=== PATIENT | female | born 1990 | race Caucasian/White ===

== ENCOUNTER 2021-12-25 21:07 | Emergency (ER) | payer MEDICAID ==
[~2021-12-25] VITALS: Ht 160 cm; Wt 68.0 kg
[2021-12-25 21:15] VITALS: BP 104/61
--- NOTE | 2021-12-25 21:18 | NUR ---
TO LOBBY A/W BED AMBULATORY
--- NOTE | 2021-12-25 22:26 | NUR ---
PT AMBULATED TO BED #3
--- NOTE | 2021-12-25 22:27 | NUR ---
Wesly rivero in [facility] - 12/25/21 at 2227 by JOCELYN PT TAKEN TO BED 3
--- NOTE | 2021-12-25 22:41 | NUR ---
31 Y/O FEMALE BIBS FROM HOME, C/O N/V/D AND APIN X2 DAYS. DENIES BLOOD IN VOMIT OR DIARRHEA. DENIES COUGH, FEVER, CP, OR SOB. SKIN IS PINK/WARM/DRY. A/OX4, UNLABORED BREATHING, AMBULATORY W/O ASSISTANCE. DENIES HX/RX NKA
--- NOTE | 2021-12-25 23:19 | NUR ---
DR ONTIVEROS AT BEDSIDE EXAMINING PT
[2021-12-25] MEDS ORDERED: MORPHINE SULFATE 4 MG/ML SYR IM ONE (23:20)
[2021-12-25] MEDS ORDERED: NACL 0.9% 1,000 ML IV ONE (23:20)
[2021-12-25] MEDS ORDERED: ONDANSETRON 4 MG/2 ML VIAL IVP ONE (23:20)
[2021-12-25 23:22] LABS: APPEARANCE,URINE CLEAR (CLEAR); BILIRUBIN,URINE NEGATIVE (NEGATIVE); BLOOD, URINE NEGATIVE (NEGATIVE); COLOR,URINE YELLOW (YELLOW); LEUKOCYTE ESTERASE ,URINE 1+ (NEGATIVE); NITRITE, URINE NEGATIVE (NEGATIVE); PH,URINE 6.5 (5.0-9.0); UGLUCOSE NEGATIVE (NEGATIVE)
[2021-12-25 23:34] LABS: RBC,URINE 0-5 /HPF (0-5); WBC,URINE 0-5 /HPF (0-5); YEAST,URINE Rare /HPF (None Seen)
--- NOTE | 2021-12-25 23:44 | NUR ---
[facility]AVEL REGISTERED NURSE PACU AT BEDSIDE OBTAINING SAMPLE
[2021-12-25 23:47] LABS: BASOPHILS # (AUTO) 0.1 K/uL (0.00-0.22); BASOPHILS % (AUTO) 0.8 % (0.0-2.0); EOSINOPHILS # (AUTO) 0.3 K/uL (0-0.4); EOSINOPHILS % (AUTO) 3.2 % (0.0-4.0); HEMATOCRIT 40.8 % (36-48); HEMOGLOBIN 13.7 g/dL (12.0-16.0); MEAN CORPUSCULAR HEMOGLOBIN 32 pg (27-31); MEAN CORPUSCULAR HGB CONC 34 g/dL (33-37); MEAN CORPUSCULAR VOLUME 94.3 fL (80-94); MONOCYTES # (AUTO) 0.6 K/uL (0.8-1.0); MONOCYTES % (AUTO) 7.4 % (1.7-9.3); NEUTROPHILS # (AUTO) 4.1 K/uL (1.8-7.7); NEUTROPHILS % (AUTO) 50.6 % (42.2-75.2); PLATELET COUNT (AUTO) 276 K/uL (140-450); RED BLOOD CELL COUNT(AUTO) 4.32 MIL/uL (4.20-5.40); RED CELL DISTRIBUTION WIDTH 12.4 % (11.6-13.7)
[2021-12-26 00:05] LABS: ANION GAP 11.5 (8-16); CARBON DIOXIDE 27.9 mmol/L (21-32); CREATININE 0.6 mg/dL (0.6-1.3); POTASSIUM 4.4 mmol/L (3.5-5.1); TOTAL BILIRUBIN 0.3 mg/dL (0.0-1.0)
--- NOTE | 2021-12-26 02:20 | NUR ---
Patient discharged with v/s stable. Written and verbal after care instructions given and explained. Patient verbalized understanding. Ambulatory with steady gait. All questions addressed prior to discharge. Advised to follow up with PMD. VSS, A/OX4, UNLABORED BREATHING, AMBULATORY, AND CALM DEMEANOR. PT DISCHARGED BY DR ONTIVEROS.
[2021-12-26 02:33] VITALS: BP 113/60
== END 2021-12-26 02:20 | disposition home or self-care (01) ==
LOC: MED 21:07
DX: A08.39 Other viral enteritis (principal)
CPT/HCPCS: 36415; 80053; 81001; 81025; 83690; 85025; 87086; 96361; 96372; 96374; 99284; J2270; J2405; J7030

== ENCOUNTER 2022-02-08 16:28 | Emergency (ER) | payer MEDICAID ==
[~2022-02-08] VITALS: Ht 160 cm; Wt 63.5 kg
[2022-02-08 16:48] VITALS: BP 124/76
--- NOTE | 2022-02-08 17:23 | NUR ---
Patient A/Ox4, chest rise and fall symmetrical, no s/s of distress. Patinet resting in bed 9.
[2022-02-08] MEDS ORDERED: NACL 0.9% 1,000 ML IV SCH (17:40)
[2022-02-08] MEDS ORDERED: ONDANSETRON 4 MG/2 ML VIAL IVP ONE (17:40)
--- NOTE | 2022-02-08 18:00 | NUR ---
Patient lying in bed a/ox4, no s/s of discomfort, chest rise and fall symmetrical.
[2022-02-08 18:11] LABS: BASOPHILS % (AUTO) 0.2 % (0.0-2.0); EOSINOPHILS # (AUTO) 0.2 K/uL (0-0.4); EOSINOPHILS % (AUTO) 1.5 % (0.0-4.0); HEMOGLOBIN 12.7 g/dL (12.0-16.0); LYMPHOCYTES # (AUTO) 0.5 K/uL (2.5-16.5); LYMPHOCYTES % (AUTO) 4.6 % (20.5-51.1); MEAN CORPUSCULAR HEMOGLOBIN 31 pg (27-31); MEAN CORPUSCULAR HGB CONC 34 g/dL (33-37); MEAN CORPUSCULAR VOLUME 93.7 fL (80-94); MONOCYTES # (AUTO) 0.6 K/uL (0.8-1.0); MONOCYTES % (AUTO) 5.6 % (1.7-9.3); NEUTROPHILS # (AUTO) 10.1 K/uL (1.8-7.7); NEUTROPHILS % (AUTO) 88.1 % (42.2-75.2); PLATELET COUNT (AUTO) 195 K/uL (140-450); RED BLOOD CELL COUNT(AUTO) 4.05 MIL/uL (4.20-5.40); RED CELL DISTRIBUTION WIDTH 12.5 % (11.6-13.7); WHITE BLOOD COUNT (AUTO) 11.4 K/uL (4.8-10.8)
[2022-02-08 18:30] LABS: ALBUMIN 3.5 g/dL (3.4-5.0); CARBON DIOXIDE 24.5 mmol/L (21-32); CREATININE 0.5 mg/dL (0.6-1.3); TOTAL BILIRUBIN 0.6 mg/dL (0.0-1.0)
[2022-02-08] MEDS ORDERED: FAMOTIDINE 20 MG/2 ML VIAL IVP ONE (18:45)
[2022-02-08 18:47] LABS: ANION GAP 12.2 (8-16); POTASSIUM 3.7 mmol/L (3.5-5.1)
[2022-02-08] MEDS ORDERED: ALUMINUM HYD/MAG/SIMETHICONE 30 ML UDC PO ONE (18:55)
[2022-02-08] MEDS ORDERED: KETOROLAC 15 MG/ML VIAL IVP ONE (18:55)
[2022-02-08] MEDS ORDERED: METOCLOPRAMIDE 10 MG/2 ML INJ VIAL IVP ONE (19:00)
--- NOTE | 2022-02-08 19:10 | NUR ---
Patient lying in bed a/ox4, no s/s of discomfort, chest rise and fall symmetrical.
--- NOTE | 2022-02-08 19:45 | NUR ---
REPORT GIVEN BY MARIA DEL CARMEN DORAN, PT C/O ABD PAIN X 1 DAY, PT BEING MEDICATED BY MARIA DEL CARMEN DORAN.
[2022-02-08] MEDS ORDERED: FAMO-90 PO (19:48)
[2022-02-08] MEDS ORDERED: METO-486 PO (19:48)
--- NOTE | 2022-02-08 19:55 | NUR ---
Change of shift report given to Kriss DORAN. Kriss DORAN verbalized understanding of report, no further questions.
[2022-02-08 20:10] VITALS: BP 122/67
--- NOTE | 2022-02-08 20:10 | NUR ---
Patient discharged with v/s stable. Written and verbal after care instructions given and explained. Patient alert, oriented and verbalized understanding of instructions. Ambulatory with steady gait. All questions addressed prior to discharge. ID band removed. Patient advised to follow up with PMD. Rx of SENT ELECTRONICALLY TO PHARMACY. Patient educated on indication of medication including possible reaction and side effects. Opportunity to ask questions provided and answered.
== END 2022-02-08 20:30 | disposition home or self-care (01) ==
LOC: MED 16:28
DX: R10.13 Epigastric pain (principal); R11.10 Vomiting, unspecified; R19.7 Diarrhea, unspecified; Z79.899 Other long term (current) drug therapy; Z98.890 Other specified postprocedural states
CPT/HCPCS: 36415; 80053; 81025; 83690; 85025; 96361; 96374; 96375; 99284; J1885; J2405; J2765; J3490; J7030

== ENCOUNTER 2022-04-09 20:36 | Emergency (ER) | payer MEDICAID ==
[~2022-04-09] VITALS: Ht 160 cm; Wt 68.0 kg
[~2022-04-09 20:36] MED LIST: FAMO-90 PO; METO-486 PO
[2022-04-09 21:10] VITALS: BP 105/57
--- NOTE | 2022-04-09 21:22 | NUR ---
PATIENT SENT TO LOBBY
== END 2022-04-09 22:37 | disposition left against medical advice (07) ==
LOC: MED 20:36
DX: R07.9 Chest pain, unspecified (principal); Z53.21 Procedure and treatment not carried out due to patient leaving prior to being seen by health care provider
CPT/HCPCS: 36415